=== PATIENT | female | born 1990 | race Caucasian/White ===

== ENCOUNTER → 2016-05-12 | Outpatient (CLI) | payer BC ==
[~2016-05-12] MED LIST: AGM875T PO; HYDR-757 PO
--- OUTSIDE RECORDS SUMMARY | 2016-05-12 11:37 | XMS REPORT | Continuity of Care Document ---
Author Author [facility] Organization [facility] Address Unknown Phone Unavailable Allergies Active Description Code Type Severity Reaction Onset Reported/Identified Relationship to Patient Clinical Status Yes No Known Drug Allergies [id number] Drug Allergy Unknown N/ A 12/07/2013 Medications Problems Date Dx Coded Attending Type Code Diagnosis Diagnosed By 12/07/2013 REDD DUCKWORTH APRN Ot 784.0 12/07/2013 REDD DUCKWORTH APRN Ot 959.09 12/07/2013 REDD DUCKWORTH APRN Ot E816.2 12/07/2013 REDD DUCKWORTH APRN Ot V06.1 Procedures Results Encounters ACCT No. Visit Date/Time Discharge Status Pt. Type Provider Facility Loc./Unit Complaint [id number] 12/07/2013 16:52:00 2013 18:38:00 DIS Emergency REDD DUCKWORTH APRN [facility] ER
--- NOTE | 2016-05-12 16:26 | Diagnostic Imaging Report ---
PROCEDURE: US OB SINGLE FETUS <14 WKS. INDICATION: Undergoing evaluation for size and dates. TECHNIQUE: Multiple real-time grayscale images were obtained of the gravid uterus. CORRELATION STUDY: None FINDINGS: Presence of a single viable intrauterine . Variable presentation. No abnormal perigestational fluid collections. Witmer-rump length 4.54 cm for an estimated age of 11 weeks 3 days. This corresponds to estimated date of delivery of 11/28/2016. cardiac activity at 169 beats per minute. Imaging of the adnexa demonstrates nonvisualization of either ovary may be owing to positioning or obscuration. No significant free pelvic fluid. IMPRESSION: Early viable intrauterine procedure with estimated age of 11 weeks 3 days for an estimated date of delivery of 11/28/2016. Dictated by: Dictated on workstation # [id number]
== END ==
LOC: RAD 11:34
PROVIDERS: ATTEND Family Medicine
DX: Z34.01 Encounter for supervision of normal first pregnancy, first trimester (principal); Z3A.11 11 weeks gestation of pregnancy
CPT/HCPCS: 76801

== ENCOUNTER → 2016-06-09 | Outpatient (CLI) | payer BC ==
--- NOTE | 2016-06-09 11:47 | Diagnostic Imaging Report ---
Hepatic ultrasound. INDICATION: Elevated liver enzymes. There are no prior studies available for comparison. The study was difficult due to patient's body habitus. FINDINGS: There is a 1.6 CM gallstone in the neck of the gallbladder. The gallbladder wall is not thickened and there is no pericholecystic fluid to suggest acute cholecystitis. The common bile duct was not well-visualized but does not seem to be significantly dilated. The liver is not enlarged and there is no focal mass involving the liver. The biliary tree is not abnormally distended either. The right kidney is unremarkable. The pancreas was obscured by bowel gas. IMPRESSION: 1. There is a 1.6 CM gallstone lodged in neck of the gallbladder. There is no evidence for acute cholecystitis, however. 2. If clinical concern regarding an acute abnormality of the gallbladder persists, then nuclear medicine hepatobiliary scan would be recommended for further study. 3. The common bile duct was not well-visualized, but does not seem to be significantly dilated. Dictated by: Dictated on workstation # [id number]
== END ==
LOC: RAD 07:47
PROVIDERS: ATTEND Family Medicine
DX: K80.20 Calculus of gallbladder without cholecystitis without obstruction (principal); R74.0 Nonspecific elevation of levels of transaminase and lactic acid dehydrogenase [LDH]
CPT/HCPCS: 76705

== ENCOUNTER → 2016-07-09 | Outpatient (CLI) | payer BC ==
--- NOTE | 2016-07-09 20:19 | Diagnostic Imaging Report ---
OB ultrasound. INDICATION: survey. FINDINGS: The heart rate is not documented on this exam although cardiac motion has been seen during the study based on the technologist notes. The placenta is posterior. Placenta covers the lower uterine segment extending to the internal os compatible with placenta previa marginalis. survey demonstrates visualization of the stomach. The rest of the anatomic structures are not well seen due to patient large body habitus and position. The growth parameters are: Biparietal diameter: 18 weeks and 6 days Head circumference: 18 weeks and 6 days Abdominal circumference: 19 weeks and 1 day Femur length: 19 weeks and 1 day These average at: 19 weeks and 0 day. This is compatible with a gestational age of 19 weeks and 5 days based on first trimester ultrasound dating. IMPRESSION: Placenta previa marginalis. Limited survey due to patient's large body habitus and position. Reevaluation of the placenta and anatomy within 2 weeks is suggested. Dictated by: Dictated on workstation # [id number]
== END ==
LOC: RAD 12:41
PROVIDERS: ATTEND Family Medicine
DX: Z34.02 Encounter for supervision of normal first pregnancy, second trimester (principal)
CPT/HCPCS: 76805

== ENCOUNTER → 2016-07-23 | Outpatient (CLI) | payer BC, MEDICAID ==
--- NOTE | 2016-07-24 07:56 | Diagnostic Imaging Report ---
INDICATION: Followup survey. TECHNIQUE: Multiple real-time grayscale images were obtained over the gravid uterus. COMPARISON: 07/09/16 FINDINGS: heart rate is 156 beats per minute. The placenta is posterior and fundal. No placenta previa is seen at this time. The cervix appears to be long and closed. survey parameters includes no ventriculomegaly, urinary bladder with suggestion of 2 umbilical arteries, and normal cord insertion is seen. The four-chamber view, spine and kidneys are not well seen. The stomach is also not evaluated. There is some limitation related to patient's large body habitus. The growth parameters are: Biparietal diameter: 21 weeks and 5 days Head circumference: 21 weeks and 5 days Abdominal circumference: 21 week 4 day Femur length: 21 week 5 day These average at: 21 weeks 5 days. This is identical to gestational age based on JUAREZ of 11/28/16. Appropriate interval growth. IMPRESSION: No placenta previa. Reevaluation followup study within 2-3 weeks is recommended to reevaluate four-chamber view, spine, kidneys and stomach. Dictated by: Dictated on workstation # [id number]
== END ==
LOC: RAD 11:44
PROVIDERS: ATTEND Family Medicine
DX: Z34.02 Encounter for supervision of normal first pregnancy, second trimester (principal); Z3A.21 21 weeks gestation of pregnancy
CPT/HCPCS: 76816

== ENCOUNTER → 2016-08-12 | Outpatient (CLI) | payer BC, MEDICAID ==
--- NOTE | 2016-08-12 19:40 | Diagnostic Imaging Report ---
INDICATION: Reevaluate four-chamber view, spine, kidney and stomach. TECHNIQUE: Multiple real-time grayscale images were obtained over the gravid uterus. COMPARISON: 07/23/16. FINDINGS: heart rate is 124 beats per minute. The cervix is 5 cm in length and is closed. The placenta is posterior and is above the lower uterine segment at 3 cm from the internal os. The spine appears unremarkable. The kidneys demonstrate no hydronephrosis or focal lesion. The four-chamber view appears grossly unremarkable, although it is less than optimally seen. The stomach is not demonstrated. IMPRESSION: The four-chamber view is seen with difficulty with no definite abnormality. The spine and the kidneys appear unremarkable. Dictated by: Dictated on workstation # [id number]
== END ==
LOC: RAD 10:08
PROVIDERS: ATTEND Family Medicine
DX: Z34.02 Encounter for supervision of normal first pregnancy, second trimester (principal)
CPT/HCPCS: 76816

== ENCOUNTER → 2016-08-26 | Outpatient (CLI) | payer BC, MEDICAID ==
--- NOTE | 2016-08-26 19:00 | Diagnostic Imaging Report ---
INDICATION: Followup four-chamber view. COMPARISON: 08/12/2016. FINDINGS: heart rate is 156 beats per minute. The placenta is posterior. No placenta previa. The four-chamber view is still not well seen due to position and large patient body habitus. IMPRESSION: The four-chamber view is still not well seen. Dictated by: Dictated on workstation # [id number]
== END ==
LOC: RAD 12:11
PROVIDERS: ATTEND Family Medicine
DX: Z36 Encounter for antenatal screening of mother (principal); Z3A.00 Weeks of gestation of pregnancy not specified
CPT/HCPCS: 76816

== ENCOUNTER → 2016-10-19 | Outpatient (CLI) | payer BC, MEDICAID ==
--- NOTE | 2016-10-19 13:30 | Diagnostic Imaging Report ---
INDICATION: Followup. TECHNIQUE: Multiple real-time grayscale images were obtained over the gravid uterus. COMPARISON: 05/12/2016; 07/09/2016; 07/23/2016; 08/12/2016; 08/26/2016. FINDINGS: As noted on the previous studies there is a single live fetus. The fetus is cephalic in presentation. heart motion was noted, and a rate of 139 bpm was recorded. There were no abnormalities identified. By the first exam of August, the estimated gestational age is approximately 34 weeks 2 days gestation +/- 1 week. Today's growth parameters average 33 weeks 6 days +/- 3 weeks. The high-risk OB ultrasound exam performed at [facility] on 09/16/2016, indicated that the abdominal circumference was approximately 1 week behind the other parameters. On this exam the abdominal circumference remains roughly 1 week behind the other growth parameters. The abdominal circumference measurement is in the 25th percentile. The fetus is cephalic in presentation. heart motion was noted, and a rate of 139 bpm was recorded. There are no abnormalities identified. The placenta is posterior and fundal, and there is no previa. Amniotic fluid index is 13.9 (normal 8 to 22 cm.) IMPRESSION: 1. There is a single live fetus approximately 34 weeks 2 days gestation +/- 1 week. The EDC remains 11/28/2016. 2. There are no abnormalities identified. 3. The growth parameters are fairly uniform although the abdominal circumference measurement still lags approximately 1 week behind the other measurements. The abdominal circumference measurement is in the 25th percentile. Biometrical measurements are as follows: Biparietal 8.4 cm, age 34 weeks 0 days. Head circumference 30.6 cm, age 34 weeks 1 days. Abdominal circumference 29.3 cm, age 33 weeks 2 days. Femur length 6.6 cm, age 34 weeks 0 days. Sonographic estimate age: 33 weeks 6 days. Sonographic estimated date of delivery: 12/01/16. Estimated Weight: 2233 gm (+/- 326 gm). LMP percentile: 25%. heart rate: 139 beats per minute. number: 1 of 1. Dictated by: Dictated on workstation # [id number]
== END ==
LOC: RAD 10:38
PROVIDERS: ATTEND Family Medicine
DX: O28.3 Abnormal ultrasonic finding on antenatal screening of mother (principal); Z3A.34 34 weeks gestation of pregnancy
CPT/HCPCS: 76816

== ENCOUNTER 2016-12-03 11:56 | Inpatient (IN) | payer BC, MEDICAID ==
[~2016-12-03] VITALS: Ht 154.9 cm; Wt 113.4 kg
[2016-12-03] VITALS (37 sets, daily range): BP systolic 83–162; BP diastolic 45–91
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
[2016-12-03] MEDS ORDERED: AMPICILLIN INJECTION 2,000 MG in NS (IVPB) 50 ML IV SCH (12:21)
[2016-12-03] MEDS ORDERED: PREN-37 PO (12:28)
[2016-12-03] MEDS ORDERED: MINERAL OIL CONCENTRATE 99.9% 15 ML UDC TOP PRN (12:30)
[2016-12-03] MEDS: D5 LR IV SOLUTION 1,000 ML IV SCH ×2 (12:49→17:09)
[2016-12-03 12:52] LABS: BASOPHILS % (AUTO) 0 % (0-10); EOSINOPHILS # (AUTO) 0.5 10^3/uL (0.0-0.3); EOSINOPHILS % (AUTO) 5 % (0-10); LYMPHOCYTES # (AUTO) 1.4 X 10^3 (1.0-4.0); LYMPHOCYTES % (AUTO) 15 % (12-44); MEAN CORPUSCULAR HEMOGLOBIN 31 PG (25-34); MEAN CORPUSCULAR HGB CONC 34 G/DL (32-36); MEAN CORPUSCULAR VOLUME 93 FL (80-99); MONOCYTES # (AUTO) 0.6 X 10^3 (0.0-1.0); MONOCYTES % (AUTO) 6 % (0-12); NEUTROPHILS % (AUTO) 74 % (42-75); PLATELET COUNT 230 10^3/uL (130-400); RED BLOOD COUNT 3.81 10^6/uL (4.35-5.85); RED CELL DISTRIBUTION WIDTH 15.1 % (10.0-14.5); WHITE BLOOD COUNT 9.5 10^3/uL (4.3-11.0)
[2016-12-03] MEDS ORDERED: MISOPROSTOL 100 MCG (CYTOTEC) TAB PV SCH (16:00)
[2016-12-03] MEDS: AMPICILLIN INJECTION 1,000 MG in NS (IVPB) 50 ML IV SCH ×2 (17:04→20:56)
[2016-12-03] MEDS ORDERED: OXYTOCIN/NORMAL SALINE 500 ML IV SCH (17:43)
[2016-12-03] MEDS ORDERED: SUFENTA 0.6MCG/ML BUPIVA 0.125 100 ML ONE (19:39)
[2016-12-03] MEDS: LACTATED RINGERS 1,000 ML IV SCH (19:45)
--- NOTE | 2016-12-03 20:53 | History & Physical-OB ---
OB - Chief Complaint & HPI Date/Time Date of Admission: Date of Admission: Dec 03, 2016 at 11:56 am Time Seen by Provider: 20:00 Chief Complaint/History OB-Reason for Admission/Chief: Induction of Labor Hx : 1 Hx Para: 0 Expected Date of Delivery: Nov 29, 2016 Gestational Age in Weeks: 40 Gestational Age in Days: 4 Indication for induction: post dates History of Labs B+, antibody neg, RI, GC/chlamydia neg, RPR/HIV/HepB neg. GBS positive. A1c at first visit 5.7, 1 hour glucola normal. Allergies and Home Medications Allergies Coded Allergies: No Known Drug Allergies (Unverified , 12/07/13) Home Medications Vit/Iron Fumarate/FA 1 Each Tablet, 1 EACH PO DAILY, (Reported) OB - History Hx of Present Care: Yes Ultrasounds: Abnormal US findings Abnormal Ultrasound Findings: Initial ultrasound incomplete and with placenta previa marginalis, placenta position resolved on repeat US, but still incomplete, sent to [facility] for detailed US which was concerning for developing SGA with AC 9th%. Patient reported unable to follow-up in [place] and 34 week ultrasound showed AC and rest of growth at 25%. Obstetrical Complications: Other (Gall stone with no cholecystitis, systolic blood pressure 142 at initial visit and then one reading of 140 remainder of ) Obstetrical History Hx : 1 Hx Para: 0 Delivery History Hx Blood Disorders: No Adverse Rxn to Tranfusion: No Patient Past Medical History PMHx: Gall stone SurgHx: None Social History/Family History HIV/AIDS: No Recent Infectious Disease Expo: No Sexually Transmitted Disease: No Alcohol Use: Denies Use Recreational Drug Use: No Smoking Cessation: Never smoker Immunizations Hepatitis A: Yes Hepatitis B: Yes Rubella: immune RPR/VDRL: Negative GBS Status: Positive HBsAG: Negative OB - Admission Exam Physical Exam Date Seen by Provider: Dec 03, 2016 Time Seen by Provider: 20:00 Vitals: Vital Signs 12/03/16 12/03/16 12/03/16 12/03/16 14:40 18:30 18:45 19:00 Temp 99.0 Pulse 61 Resp 18 B/P (MAP) 126/76 O2 Delivery Room Air O2 Flow Rate 15.00 HEENT: NCAT Abdomen: Non tender Extremities: Normal Cervical Dilatation: 4cm Effacement: Other (60) Station: -3 Membranes: Intact Heart Rate: 130's Decelerations: No Decelerations Short Term Variability: Present Jail Variability: Average (6-25) Roth Scoring Tool (Modified) Dilation (cm): 3-4cm (2) Effacement (%): 51-79% (2) Descent/Station: -2 (1) Cervix Consistency: Soft (2) Cervix Position: Posterior (0) Subtract 1 point for: Postdate (-1), Nulliparity (-1) Roth Score: 5 Labs Laboratory Tests Test 12/03/16 12:35 Range/Units White Blood Count 9.5 4.3-11.0 10^3/uL Red Blood Count 3.81 L 4.35-5.85 10^6/uL Hemoglobin 11.9 11.5-16.0 G/DL Hematocrit 36 35-52 % Mean Corpuscular Volume 93 80-99 FL Mean Corpuscular Hemoglobin 31 25-34 PG Mean Corpuscular Hemoglobin Concent 34 32-36 G/DL Red Cell Distribution Width 15.1 H 10.0-14.5 % Platelet Count 230 130-400 10^3/uL Mean Platelet Volume 12.0 H 7.4-10.4 FL Neutrophils (%) (Auto) 74 42-75 % Lymphocytes (%) (Auto) 15 12-44 % Monocytes (%) (Auto) 6 0-12 % Eosinophils (%) (Auto) 5 0-10 % Basophils (%) (Auto) 0 0-10 % Neutrophils # (Auto) 7.0 1.8-7.8 X 10^3 Lymphocytes # (Auto) 1.4 1.0-4.0 X 10^3 Monocytes # (Auto) 0.6 0.0-1.0 X 10^3 Eosinophils # (Auto) 0.5 H 0.0-0.3 10^3/uL Basophils # (Auto) 0.0 0.0-0.1 10^3/uL OB - Assessment/Plan/Diagnosis Assessment Assessment: group B positive strep, induction of labor Plan Plan: Induction Induction Method: per Misoprostol Protocol Other Plan Ampicillin for GBS positive. Cervical ripening with misoprostol (Roth score 5/ cervical dilation on admission per nurse exam). Monitor blood pressure closely. Copy Copies To 1: STEPHAN PADRON MD, BETHANY N MD Dec 03, 2016 8:53 pm
[2016-12-03] MEDS ORDERED: diphenhydrAMINE 50 MG/ML INJ (BENADRYL) IV PRN (21:00)
[2016-12-03] MEDS ORDERED: METOCLOPRAMIDE INJ 10 MG/2 ML (REGLAN) IV PRN (21:00)
[2016-12-03] MEDS ORDERED: ONDANSETRON 4 MG/2 ML (SDV) Z0FRAN IV PRN (21:00)
[2016-12-03] MEDS ORDERED: NALOXONE 0.4 MG/ML 1 ML (NARCAN) VIAL IV PRN ×2 (21:00)
[2016-12-03] MEDS ORDERED: EPIDURAL (SUFENTA 0.6MCG/ML BUPIVA 0.125%) 100 ML BAG EPI SCH (21:00)
[2016-12-03] MEDS: CATHETER FLUSH 10 ML SYR IV SCH (22:00)
[2016-12-04] VITALS (64 sets, daily range): BP systolic 69–140; BP diastolic 50–88
[2016-12-04] MEDS ORDERED: NS (IVPB) 50 ML ONE (01:28)
[2016-12-04] MEDS ORDERED: AMPICILLIN 1000 MG INJECTION (IV/IM) ONE (01:28)
[2016-12-04] MEDS: AMPICILLIN INJECTION 1,000 MG in NS (IVPB) 50 ML IV SCH ×3 (01:30→10:19)
[2016-12-04] MEDS: D5 LR IV SOLUTION 1,000 ML IV SCH ×2 (01:41→10:19)
[2016-12-04] MEDS: CATHETER FLUSH 10 ML SYR IV SCH (06:09)
--- NOTE | 2016-12-04 08:08 | OB Labor & Delivery Record ---
L&D History Date of Service Date of Service: Dec 03, 2016 History Expected Date of Delivery: Nov 29, 2016 Gestational Age in Weeks: 40 Hx : 1 Hx Para: 0 Complications Operative Indications (Cesarea: Failure to Progress L&D Stage1 Monitors and Tracing Monitor Mode: External Heart Rate: 140 Station: -1 Vital Signs VS - Last 72 Hours, by Label 12/03/16 12/03/16 12/03/16 12/03/16 12:15 13:40 14:15 14:40 Temp 98.5 Pulse 63 66 62 Resp 18 18 18 B/P (MAP) 144/66 137/66 132/78 O2 Delivery Room Air Room Air Non Rebreather O2 Flow Rate 15.00 12/03/16 12/03/16 12/03/16 12/03/16 15:40 16:40 17:40 18:05 Pulse 65 63 64 71 Resp 18 18 18 18 B/P (MAP) 120/67 137/90 129/60 118/64 O2 Delivery Room Air Room Air Room Air Room Air 12/03/16 12/03/16 12/03/16 12/03/16 18:15 18:30 18:45 19:00 Temp 99.0 Pulse 61 62 61 Resp 18 18 18 B/P (MAP) 110/56 125/71 126/76 O2 Delivery Room Air Room Air Room Air Room Air 12/03/16 12/03/16 12/03/16 12/03/16 19:00 19:15 19:35 19:50 Pulse 65 64 78 63 Resp 18 18 18 18 B/P (MAP) 133/72 126/77 162/91 150/77 O2 Delivery Room Air Room Air Room Air Room Air 12/03/16 12/03/16 12/03/16 12/03/16 20:05 20:25 20:31 20:35 Pulse 62 81 74 75 Resp 18 18 18 18 B/P (MAP) 136/72 124/76 129/71 138/56 Pulse Ox 99 99 100 O2 Delivery Room Air Room Air Room Air Room Air 12/03/16 12/03/16 12/03/16 12/03/16 20:38 20:41 20:50 20:53 Pulse 68 72 65 59 Resp 18 18 18 18 B/P (MAP) 123/58 121/76 113/57 124/56 Pulse Ox 99 99 99 99 O2 Delivery Room Air Room Air Room Air Room Air 12/03/16 12/03/16 12/03/16 12/03/16 20:56 21:00 21:05 21:10 Pulse 57 71 71 59 Resp 18 18 18 18 B/P (MAP) 116/56 119/58 118/56 83/45 Pulse Ox 99 98 98 98 O2 Delivery Room Air Room Air Room Air Room Air 12/03/16 12/03/16 12/03/16 12/03/16 21:15 21:35 21:50 22:05 Temp 98.3 Pulse 63 55 56 65 Resp 18 18 18 18 B/P (MAP) 113/56 96/54 103/62 94/51 Pulse Ox 100 97 97 97 O2 Delivery Room Air Room Air Room Air Room Air 12/03/16 12/03/16 12/03/16 12/03/16 22:20 22:35 22:50 23:05 Pulse 67 54 47 49 Resp 16 16 16 16 B/P (MAP) 128/56 111/54 118/57 114/55 O2 Delivery Room Air Room Air Non Rebreather Non Rebreather O2 Flow Rate 12.00 12.00 12/03/16 12/03/16 12/03/16 12/04/16 23:20 23:35 23:50 00:05 Temp 99.0 Pulse 48 55 55 53 Resp 16 16 16 16 B/P (MAP) 119/50 97/54 132/67 120/58 O2 Delivery Non Rebreather Room Air Room Air Room Air O2 Flow Rate 12.00 12/04/16 12/04/16 12/04/16 12/04/16 00:20 00:50 01:05 01:20 Temp 98.7 Pulse 53 49 52 57 Resp 16 16 16 16 B/P (MAP) 114/56 126/58 117/59 110/56 O2 Delivery Room Air Room Air Room Air Room Air 12/04/16 12/04/16 12/04/16 12/04/16 01:35 01:55 02:10 02:25 Pulse 54 56 50 51 Resp 16 16 16 16 B/P (MAP) 134/69 115/60 113/56 108/57 O2 Delivery Room Air Room Air Room Air Room Air 12/04/16 12/04/16 12/04/16 12/04/16 02:40 02:55 03:10 03:25 Pulse 48 51 52 57 Resp 16 16 16 16 B/P (MAP) 111/59 117/68 116/62 114/64 O2 Delivery Room Air Room Air Room Air Room Air 12/04/16 12/04/16 12/04/16 12/04/16 03:40 03:55 04:10 04:25 Pulse 50 53 52 51 Resp 16 16 16 16 B/P (MAP) 120/62 114/61 107/56 121/74 O2 Delivery Room Air Room Air Room Air Room Air 12/04/16 12/04/16 12/04/16 12/04/16 04:40 04:55 05:10 05:25 Temp 99.3 Pulse 53 56 55 51 Resp 16 16 16 16 B/P (MAP) 107/56 119/66 115/64 116/62 O2 Delivery Room Air Room Air Room Air Room Air 12/04/16 12/04/16 12/04/16 12/04/16 05:40 05:55 06:10 06:25 Temp 99.0 Pulse 61 59 57 65 Resp 16 16 16 18 B/P (MAP) 117/63 116/61 116/66 121/69 O2 Delivery Room Air Room Air Room Air Room Air 12/04/16 12/04/16 12/04/16 06:40 06:55 07:10 Pulse 58 50 50 Resp 18 18 18 B/P (MAP) 119/68 121/64 126/71 O2 Delivery Room Air Room Air Room Air Induction/Anesthesia Epidural Cath Placement - Time: 2037 Progress/Notes 0800: Feeling comfortable with epidural. FHT 150s, moderate variability, accels present. Ctx 3/10. SVE 5+/60/-3. AROM done with blood tinged fluid. Continue pitocin. 1300: SVE 6/90/-2. IUPC placed to ensure adequate contraction pattern. 1530: report from nurse of cervical exam still 6/90, and temperature 100.4. Discussed with Dr. Tracy and proceeded to for failure to progress. L&D Stage2 Monitors and Tracing Monitor Mode: External Heart Rate: 140 Condition of Delivery Delivery Date & Time: 1617 1 minute Comment: 8 5 minute Comment: 9 Condition of Infant Condition of Infant: Living Exam: No Observed Abnormalities Resuscitation Resuscitation: N/A - Spontaneous Resp STEHPAN PADRON MD Dec 04, 2016 08:08
[2016-12-04] MEDS ORDERED: GENTAMICIN INJ (FOR COMPOUND) 0.1 MG in NS (IVPB) 100 ML IV SCH (15:30)
[2016-12-04] MEDS ORDERED: ceFAZolin 2 GM/50 ML NS 50 ML IV NR (15:30)
[2016-12-04] MEDS ORDERED: LIDOCAINE PF 2% 5 ML (XYLOCAINE) VIAL ONE ×2 (15:32→15:34)
[2016-12-04] MEDS ORDERED: BUPIVACAINE 0.25% 30 ML (SENSORCAINE) VIAL ONE (15:32)
[2016-12-04] MEDS ORDERED: fentaNYL INJECTION 100 MCG/2 ML AMP ONE (15:33)
[2016-12-04] MEDS ORDERED: CITRIC ACID/SOB CIT (BICITRA) 30 ML UDC ONE (15:37)
[2016-12-04] MEDS ORDERED: FAMOTIDINE 20MG/2ML IV (PEPCID) ONE (15:38)
[2016-12-04] MEDS ORDERED: FAMOTIDINE 20MG/2ML IV (PEPCID) IV ONE (15:45)
[2016-12-04] MEDS ORDERED: CATHETER FLUSH 10 ML SYR IV PRN (15:45)
[2016-12-04] MEDS ORDERED: GENTAMICIN INJ (FOR COMPOUND) 120 MG in NS (IVPB) 100 ML IV ONE (15:45)
[2016-12-04] MEDS ORDERED: ceFAZolin 2 GM/50 ML NS 50 ML IV ONE (15:45)
[2016-12-04] MEDS ORDERED: CITRIC ACID/SOB CIT (BICITRA) 30 ML UDC PO ONE (15:45)
[2016-12-04] MEDS ORDERED: METOCLOPRAMIDE INJ 10 MG/2 ML (REGLAN) IV ONE (15:45)
[2016-12-04] MEDS: LACTATED RINGERS 1,000 ML IV SCH (15:48)
[2016-12-04] MEDS ORDERED: OXYTOCIN/NORMAL SALINE 500 ML IV SCH (15:49)
--- NOTE | 2016-12-04 15:56 | Progress Note-Standard ---
Standard Progress Note Progress Notes/Assess & Plan Date Seen by Provider: Dec 04, 2016 Time Seen by Provider: 15:40 Progress/Assessment & Plan I was consult by Dr. Kaur on this patient for proceeding with delivery. This 26-year-old was admitted yesterday around noon for induction of labor due to postdates. The patient was augmented with Pitocin after cervical ripening was done using misoprostol. She received an epidural during her labor, progressed to proximally 6 cm dilated however no engagement of the head into the pelvis beyond -1 ever occurred. Rupture of membranes revealed clear fluid, however over the past 2 hours the patient has had adequate contraction pattern documented by IUPC, as well as a likely adequate contraction pattern prior to that without the IUPC. There was also a low-grade temperature noted in the past hour of 100.4. I was consult at this point, due to arrest of dilation and failure to progress as well as suspicion for early chorioamnionitis I was agreeable to proceed with delivery. I ordered 2 g of Ancef as well as 120 mg of gentamicin for the early suspicion for chorioamnionitis. The procedure was discussed with the patient and her at the bedside. Consent was obtained. We will proceed with primary at the ready of OR staff and anesthesia. TAYLOR SAUER DO Dec 04, 2016 15:56
[2016-12-04] MEDS ORDERED: TETANUS,DIPTH,PERTUSS P/F (BOOSTRIX) 0.5 ML VIAL IM SCH (16:00)
[2016-12-04] MEDS ORDERED: ONDANSETRON 4 MG/2 ML (SDV) Z0FRAN IVP PRN (16:00)
[2016-12-04] MEDS ORDERED: HYDROcodone/APAP 5 MG/325 MG (LORTAB) TAB PO PRN (16:00)
[2016-12-04] MEDS ORDERED: GENTAMICIN IV NR (16:00)
[2016-12-04] MEDS ORDERED: MEASLES,MUMPS,RUBELLA 1 EA INJ SC SCH (16:00)
[2016-12-04] MEDS ORDERED: NS IV NR (16:00)
[2016-12-04] MEDS ORDERED: HYDROmorphone (DILAUDID) 2 MG/ML VIAL IVP PRN (16:00)
[2016-12-04] MEDS ORDERED: OXYTOCIN/NORMAL SALINE 1,000 ML IV ONE (16:17)
[2016-12-04] MEDS: KETOROLAC 30 MG/ML VIAL IVP SCH ×2 (17:05→23:07)
[2016-12-04 19:44] LABS: ANION GAP 9 MMOL/L (5-14); BLOOD UREA NITROGEN 11 MG/DL (7-18); BUN/CREATININE RATIO 14; CALCIUM 7.6 MG/DL (8.5-10.1); CARBON DIOXIDE 19 MMOL/L (21-32); CHLORIDE 109 MMOL/L (98-107); CREATININE SERUM 0.79 MG/DL (0.60-1.30); GFR ESTIMATED > 60; GLUCOSE 81 MG/DL (70-105); POTASSIUM 3.7 MMOL/L (3.6-5.0); SODIUM 137 MMOL/L (135-145)
[2016-12-04] MEDS: DOCUSATE SODIUM 100 MG (COLACE) CAP PO SCH (23:06)
[2016-12-05] MEDS ORDERED: ceFAZolin 2 GM/50 ML NS 50 ML IV NR
[2016-12-05] MEDS ORDERED: GENTAMICIN 100 MG/50 ML IV SCH
[2016-12-05] MEDS: CATHETER FLUSH 10 ML SYR IV SCH ×2 (01:47→05:12)
[2016-12-05 04:05] VITALS: BP 109/71
[2016-12-05] MEDS: KETOROLAC 30 MG/ML VIAL IVP SCH ×2 (05:12→11:19)
--- NOTE | 2016-12-05 06:01 | OPERATIVE REPORT ---
DATE OF SERVICE: PREOPERATIVE DIAGNOSES: 1. A 26-year-old G1, P0 at 40 weeks and 5 days gestation. 2. Failure to progress. 3. Low-grade temp , suspicion for early chorioamnionitis. POSTOPERATIVE DIAGNOSES: 1. A 26-year-old G1, P0 at 40 weeks and 5 days gestation. 2. Failure to progress. 3. Low-grade temp, suspicion for early chorioamnionitis. 4. Nuchal cord x2. PROCEDURE PERFORMED: TopofForm Primary lower transverse section. SURGEON: Dr. Fercho Tracy. ANESTHESIA: Epidural, which was bolused. ESTIMATED BLOOD LOSS: 500 mL. URINE OUTPUT: 100 mL, clear at the end of the procedure. FLUIDS: 500 mL of lactated Ringer's solution. FINDINGS: A live male weighing 6 pounds 10 ounces. Apgars of 8 and 9. Grossly normal uterus, tubes and ovaries. SPECIMEN SENT: Placenta. INDICATIONS FOR PROCEDURE: This 26-year-old female was admitted by Dr. Kaur for management of her first labor at post dates of 40 weeks and 5 days gestation. The patient was managed during her labor course by Dr. Kaur to the point where there was a failure to progress with adequate monitoring and [facility] as well as adequate contraction pattern for the last 4-6 hours. The patient progressed all the way to 6 cm dilated. There was also a low-grade temperature involved. Due to lack of progression as well as the patient has been remote from delivery, failure to progress was diagnosed as well as early suspicion for chorioamnionitis. Due to that, 2 grams of Ancef were given for preoperative infection prophylaxis as well as 120 mg of gentamicin IV for suspected underline chorio. I was consulted and came in discussion with the patient about the indications for . Risks of the procedure were discussed with the patient in detail including risk of bleeding, infection, damage in the surrounding structures including but no limited to bowel or bladder, ureter, kidneys, need for postoperative blood transfusion, need for intraoperative blood transfusion, need for possible hysterectomy and even . After everything was discussed with the patient in detail, consent was obtained. The patient was taken to the operating room. OPERATIVE REPORT IN DETAIL: Once in the operating room, epidural analgesia was bolused and found to be adequate, she placed in the supine position with a leftward tilt, prepped and draped in the normal sterile fashion. Pfannenstiel skin incision was made with a knife and carried down to the underlying fascia using Bovie cautery. The fascial incision was extended laterally using Bovie cautery. The superior aspect of the fascial incision was then grasped with Radha clamps, tented upward and dissected off underlying rectus muscles. The inferior aspect of the fascial incision was then grasped with Radha clamps, tented upward and dissected off the underlying rectus muscle. The rectus muscles were then dissected down the midline using Escalante scissors, which exposed peritoneum, which I entered bluntly and extended using Metzenbaum scissors with good visualization of underlying bowel and bladder steering clear of these areas. I then placed the Kamaljit ring retractor in the peritoneal incision, which offers excellent lateral sidewall retraction. I proceed with making an incision into the vesicouterine peritoneum on the low transverse fashion, bluntly dissecting off the vesicouterine peritoneum including a bladder flap. I then proceed with my myotomy through the uterine muscle until membranes are visualized at which point I extended the uterine incision laterally and superiorly using bandage scissors. A clear fluid was noted at the time of rupture. The was found in vertex presentation. The 's head was elevated up to the incision and delivered through the incision where the nares and oropharynx are both suctioned. A nuchal cord was reduced x2. Anterior and posterior shoulders were delivered. The infant was then brought out into the operative field where the cord was doubly clamped and cut and the infant was handed off to the awaiting nurses in attendance. Cord blood was collected and 3-vessel cord with intact placenta was delivered spontaneously thereafter. IV Pitocin was initiated to facilitate uterine contraction. Uterine fundus became firmer with bimanual massage. The uterine was then exteriorized and cleared of all endometrial clots and debris. I then closed the uterine incision using 0 Vicryl suture in running locked fashion. A second layer of imbricating 0 Monocryl was placed. Decent hemostasis was noted after doing this; however,there were still a few areas that are slightly oozing, a couple of 3-0 ligating [id number] sutures are placed over these areas, which offer excellent hemostasis. I then inspected the uterus, fallopian tubes, and ovaries, which all appeared grossly normal and placed the uterus back within the pelvis where it was copiously irrigated using normal saline. I then placed Intercede anti-adhesion over the lower transverse incision and proceeded with closing the peritoneum using a 3-0 Vicryl suture in running fashion. The rectus muscles are reapproximated using 3-0 Vicryl suture in interrupted fashion. The fascia reapproximated using 0 Vicryl suture in running fashion. The subcutaneous tissue reapproximated using 3-0 plain in an interrupted subcutaneous stitch. The skin reapproximated using 4-0 Monocryl in a running subcuticular. Dermabond was applied to the incision. Sterile dressing was adhesed with white tape. Coronado catheter was left in place to be removed in the recovery area. The patient tolerated the procedure well, taken to recovery area in stable condition. Lap and sponge counts correct at the end of the procedure. Instrument count was correct as well. Job ID: [id number] DocumentID: [id number] Dictated Date: 12/04/2016 16:47:59 [facility] Date: 12/05/2016 03:35:40 Dictated By: DO GERONIMO DEVINE
[2016-12-05 06:10] LABS: BASOPHILS % (AUTO) 0 % (0-10); EOSINOPHILS # (AUTO) 0.1 10^3/uL (0.0-0.3); EOSINOPHILS % (AUTO) 2 % (0-10); LYMPHOCYTES # (AUTO) 1.1 X 10^3 (1.0-4.0); LYMPHOCYTES % (AUTO) 12 % (12-44); MEAN CORPUSCULAR HEMOGLOBIN 31 PG (25-34); MEAN CORPUSCULAR HGB CONC 33 G/DL (32-36); MEAN CORPUSCULAR VOLUME 93 FL (80-99); MEAN PLATELET VOLUME 10.9 FL (7.4-10.4); MONOCYTES # (AUTO) 0.5 X 10^3 (0.0-1.0); MONOCYTES % (AUTO) 6 % (0-12); NEUTROPHILS # (AUTO) 7.7 X 10^3 (1.8-7.8); NEUTROPHILS % (AUTO) 81 % (42-75); PLATELET COUNT 153 10^3/uL (130-400); RED BLOOD COUNT 3.06 10^6/uL (4.35-5.85); RED CELL DISTRIBUTION WIDTH 14.4 % (10.0-14.5); WHITE BLOOD COUNT 9.5 10^3/uL (4.3-11.0)
[2016-12-05 08:25] VITALS: BP 113/63
--- NOTE | 2016-12-05 09:16 | Discharge Inst-Women's Service ---
Discharge Inst-Women's Serv Depart Medication/Instructions New, Converted or Re-Newed RX: RX on Chart Consults/Follow Up Additional Follow Up: Yes Orders/Referrals Dr. Tracy in 7-[address] Kaur in 6 weeks Activity Activity: Activity as Tolerated Driving Instructions: No Driving for 1 Week NO SMOKING: NO SMOKING Nothing Inside Vagina: No Douching, No Mauldin, No Tampons Diet Discharge Diet: No Restrictions Symptoms to Report to : Bleeding Excessive, Pain Increased, Fever Over 101 Degrees F, Vaginal Bleeding Increase, Questions/Concerns For Any Problems or Questions: Contact Your Physician Skin/Wound Care Infection Signs and Symptoms: Increased Redness, Foul Odor of Wound, Increased Drainage, Skin Itchy or Has a Rash, Increased Swelling, Temperature Above 101 F Operative Area Clean and Dry: Keep Incision Clean/Dry Stitches/Rattan/Dermabond: Dermabond, Care of Stitches Bathing Instructions: TAYLOR Aranda DO Dec 05, 2016 09:16
[2016-12-05] MEDS ORDERED: DOCU100C37 PO (09:17)
[2016-12-05] MEDS ORDERED: HYDR-3812 PO (09:17)
[2016-12-05] MEDS ORDERED: IBUP-1773 PO (09:17)
--- NOTE | 2016-12-05 09:30 | Progress Note-Standard ---
Standard Progress Note Progress Notes/Assess & Plan Date Seen by Provider: Dec 05, 2016 Time Seen by Provider: 09:27 Progress/Assessment & Plan Patient doing well this morning. Had a temp last night of 101, so a second dose of ANcef was given 8 hrs postop, patient has been afebrile since. Denies nausea vomitting. Tolerating regular diet. Ambulating and voiding freely. Vital Sign - Last 24 Hours 12/04/16 12/04/16 12/04/16 12/04/16 09:30 09:45 10:00 10:15 Pulse 60 60 60 57 Resp 18 18 18 18 B/P (MAP) 128/75 128/81 134/67 140/73 Pulse Ox 95 98 97 99 O2 Delivery Room Air Room Air Room Air Room Air 12/04/16 12/04/16 12/04/16 12/04/16 10:30 10:45 11:00 11:15 Temp 99.0 Pulse 65 60 69 74 Resp 18 18 18 18 B/P (MAP) 134/62 134/73 136/86 129/64 Pulse Ox 97 98 100 98 O2 Delivery Room Air Room Air Room Air Room Air 12/04/16 12/04/16 12/04/16 12/04/16 11:30 11:45 12:00 12:15 Pulse 63 75 69 74 Resp 18 18 18 18 B/P (MAP) 98/55 121/88 131/80 104/67 Pulse Ox 100 99 99 100 O2 Delivery Room Air Room Air Room Air Room Air 12/04/16 12/04/16 12/04/16 12/04/16 12:30 12:45 13:00 13:15 Pulse 76 69 76 85 Resp 18 18 18 18 B/P (MAP) 119/74 140/70 126/64 119/50 Pulse Ox 99 98 100 100 O2 Delivery Room Air Room Air Room Air Room Air 12/04/16 12/04/16 12/04/16 12/04/16 13:30 13:45 14:00 14:15 Pulse 68 70 67 71 Resp 18 18 18 18 B/P (MAP) 132/76 126/69 126/73 136/71 Pulse Ox 100 98 95 93 O2 Delivery Room Air Room Air Room Air Room Air 12/04/16 12/04/16 12/04/16 12/04/16 14:30 14:45 15:00 15:15 Pulse 72 64 58 66 Resp 18 18 18 18 B/P (MAP) 126/64 133/61 131/61 133/72 Pulse Ox 91 98 97 96 O2 Delivery Room Air Room Air Room Air Room Air 12/04/16 12/04/16 12/04/16 12/04/16 15:17 15:30 15:45 19:25 Temp 100.4 101.1 Pulse 63 76 78 Resp 18 18 18 B/P (MAP) 131/65 129/63 118/68 Pulse Ox 100 98 O2 Delivery Room Air Room Air Room Air 12/04/16 12/04/16 12/04/16 12/05/16 20:30 21:40 23:46 04:05 Temp 100.2 100.1 97.8 97.2 Pulse 71 69 Resp 18 18 B/P (MAP) 116/69 109/71 Pulse Ox 98 100 O2 Delivery Room Air Room Air 12/05/16 08:25 Temp 97.4 Pulse 75 Resp 18 B/P (MAP) 113/63 Pulse Ox 98 O2 Delivery Room Air Incision: dressing removed, incision c/d/i Laboratory Tests Test 12/04/16 19:10 12/05/16 05:37 Range/Units Sodium Level 137 135-145 MMOL/L Potassium Level 3.7 3.6-5.0 MMOL/L Chloride Level 109 H 98-107 MMOL/L Carbon Dioxide Level 19 L 21-32 MMOL/L Anion Gap 9 5-14 MMOL/L Blood Urea Nitrogen 11 7-18 MG/DL Creatinine 0.79 0.60-1.30 MG/DL Estimat Glomerular Filtration Rate > 60 BUN/Creatinine Ratio 14 Glucose Level 81 70-105 MG/DL Calcium Level 7.6 L 8.5-10.1 MG/DL White Blood Count 9.5 4.3-11.0 10^3/uL Red Blood Count 3.06 L 4.35-5.85 10^6/uL Hemoglobin 9.5 #L 11.5-16.0 G/DL Hematocrit 29 L 35-52 % Mean Corpuscular Volume 93 80-99 FL Mean Corpuscular Hemoglobin 31 25-34 PG Mean Corpuscular Hemoglobin Concent 33 32-36 G/DL Red Cell Distribution Width 14.4 10.0-14.5 % Platelet Count 153 130-400 10^3/uL Mean Platelet Volume 10.9 H 7.4-10.4 FL Neutrophils (%) (Auto) 81 H 42-75 % Lymphocytes (%) (Auto) 12 12-44 % Monocytes (%) (Auto) 6 0-12 % Eosinophils (%) (Auto) 2 0-10 % Basophils (%) (Auto) 0 0-10 % Neutrophils # (Auto) 7.7 1.8-7.8 X 10^3 Lymphocytes # (Auto) 1.1 1.0-4.0 X 10^3 Monocytes # (Auto) 0.5 0.0-1.0 X 10^3 Eosinophils # (Auto) 0.1 0.0-0.3 10^3/uL Basophils # (Auto) 0.0 0.0-0.1 10^3/uL Diagnosis: POD 1 PLTCS Acute blood loss anemia BMI 47 P: Continue routine PO care Replace iron Anticipate dc tomorrow TAYLOR SAUER DO Dec 05, 2016 9:30 am
[2016-12-05] MEDS: FERROUS SULF 325 MG (IRON) TAB PO SCH (10:29)
[2016-12-05] MEDS: DOCUSATE SODIUM 100 MG (COLACE) CAP PO SCH (10:29)
[2016-12-05 12:25] VITALS: BP 119/75
[2016-12-05 16:40] VITALS: BP 123/78
[2016-12-05] MEDS: IBUPROFEN 600 MG (MOTRIN) TAB PO SCH (18:40)
[2016-12-06] MEDS: DOCUSATE SODIUM 100 MG (COLACE) CAP PO SCH ×2 (00:15→09:02)
[2016-12-06] MEDS: IBUPROFEN 600 MG (MOTRIN) TAB PO SCH ×3 (00:15→12:10)
[2016-12-06 06:15] VITALS: BP 118/72
[2016-12-06] MEDS ORDERED: INFLUENZA TRIvalent 2017-2018 0.5 ML/45 MCG SYR IM ONE (07:00)
[2016-12-06] MEDS ORDERED: TROUGH ORDER-PHARMACY XX NR (07:30)
[2016-12-06] MEDS: FERROUS SULF 325 MG (IRON) TAB PO SCH (09:02)
[2016-12-06 09:11] VITALS: BP 129/73
--- NOTE | 2016-12-06 10:21 | Progress Note-Standard ---
Standard Progress Note Progress Notes/Assess & Plan Date Seen by Provider: Dec 06, 2016 Time Seen by Provider: 10:15 Progress/Assessment & Plan Patient doing well this morning. Remains afebrile. Denies nausea vomitting. Tolerating regular diet. Ambulating and voiding freely. Vital Sign - Last 24 Hours 12/05/16 12/05/16 12/06/16 12/06/16 12:25 16:40 06:15 09:11 Temp 97.1 97.0 98.4 97.4 Pulse 68 67 75 67 Resp 18 16 16 18 B/P (MAP) 119/75 123/78 118/72 129/73 Pulse Ox 99 97 98 99 O2 Delivery Room Air Room Air Room Air Room Air Incision: dressing removed, incision c/d/i Diagnosis: POD 2 PLTCS Acute blood loss anemia BMI 47 P: Continue routine PO care Replace iron Anticipate dc today TAYLOR SAUER DO Dec 06, 2016 10:21 am
--- NOTE | 2016-12-06 21:08 | Anesthesia-Regional Post-Op ---
Regional Patient Condition Mental Status: Alert, Oriented x3 Circulation: Same as Pre-Op Headache: Absent Sensation: Full Recovery Motor Block: Absent Post Op Complications Complications None Follow Up Care/Instructions Patient Instructions None needed. Anesthesia/Patient Condition Patient is doing well, no complaints, stable vital signs, no apparent adverse anesthesia problems. No complications reported per nursing. D/C home per [facility] Criteria: Yes KENDRA ASHBY CRNA Dec 06, 2016 21:08
== END 2016-12-06 16:00 | disposition home or self-care (01) | DRG 765 ==
LOC: LDRP 11:56
PROVIDERS: ADMIT Family Medicine; ATTEND Family Medicine
PROC: 3E0P7GC Introduction of Other Therapeutic Substance into Female Reproductive, Via Natural or Artificial Opening (ICD-10-PCS; 2016-12-03)
PROC: 10D00Z1 Extraction of Products of Conception, Low, Open Approach (ICD-10-PCS; principal; 2016-12-04 15:55)
DX: O48.0 Post-term pregnancy (principal); O41.1230 Chorioamnionitis, third trimester, not applicable or unspecified; O62.2 Other uterine inertia; O99.824 Streptococcus B carrier state complicating childbirth; O69.81X0 Labor and delivery complicated by cord around neck, without compression, not applicable or unspecified; O90.81 Anemia of the puerperium; D62 Acute posthemorrhagic anemia; Z3A.40 40 weeks gestation of pregnancy; Z37.0 Single live birth; Z23 Encounter for immunization
CPT/HCPCS: 36415; 80048; 85025; 86850; 86900; 86901; 94664